=== PATIENT | male | born 1970 | race Caucasian/White ===

== ENCOUNTER 2018-04-01 13:22 | Emergency (ER) | payer OTHER ==
[~2018-04-01] VITALS: Ht 177.8 cm; Wt 124.7 kg
[~2018-04-01 13:22] MED LIST: AMBIEN 5 MG TABL5 M1 PO; CEPHALEXIN 500500 M2 PO; CIPROFLOXACIN500 M1 PO; CLEOCIN HCL150 MG PO; FLOXIN OTI0.3 %/5 M1 OP; NEXIUM40 MG PO; NORCO 5-325 TA1 EACH PO; PRILOSEC 20 MG20 MG PO; VICODIN
[2018-04-01] MEDS ORDERED: ZANTAC 150MG T150 MG PO (13:35)
[2018-04-01 13:45] LABS: ABSOLUTE EOSINOPHILS 0.1 thou/uL (0.0-0.7); ABSOLUTE LYMPHOCYTES 1.5 thou/uL (0.8-5.3); ABSOLUTE MONOCYTES 0.4 thou/uL (0.0-1.2); ABSOLUTE NEUTROPHILS 2.6 thou/uL (1.6-8.1); BASOPHILS 0.6 %; EOSINOPHILS 1.8 %; HEMATOCRIT 39.4 % (42.0-52.0); HEMOGLOBIN 13.4 gm/dL (14.0-18.0); LYMPHOCYTES 32.5 %; MCH 27.5 pg (26.0-34.0); MCHC 34.1 g/dL (28.0-37.0); MCV 80.8 fL (80.0-100.0); MONOCYTES 8.7 %; MPV 8.8 fl. (7.2-11.1); NUCLEATED RBCS 0 /100WBC; PLATELET COUNT* 160 thou/uL (150-400); POLYS 56.4 %; RBC 4.88 mil/uL (4.50-6.00); RDW-CV 13.5 % (10.5-14.5); WBC 4.6 thou/uL (4.0-11.0)
[2018-04-01 13:57] LABS: ANION GAP 6 mmol/L (7-16); BUN 19 mg/dL (7-18); CALCIUM 9.2 mg/dL (8.5-10.1); CHLORIDE 105 mmol/L (98-107); CO2 27 mmol/L (21-32); CREATININE 1.1 mg/dL (0.6-1.3); GLUCOSE 103 mg/dL (70-99); POTASSIUM 3.9 mmol/L (3.5-5.1); SODIUM 138 mmol/L (136-145)
[2018-04-01 14:04] LABS: ALBUMIN 4.1 g/dL (3.4-5.0); ALKALINE PHOSPHATASE 63 U/L (46-116); SGOT 18 U/L (15-37); SGPT 28 U/L (30-65); TOTAL BILIRUBIN 0.4 mg/dL (<0.1-1.0); TOTAL PROTEIN 7.4 g/dL (6.4-8.2); TROPONIN-I LEVEL <0.06 ng/mL (<0.06)
[2018-04-01 15:36] VITALS: BP 125/79
--- NOTE | 2018-04-02 13:25 | EKG ---
[place] [address] ELECTROCARDIOGRAM REPORT Name: LESLIE SHETH Room: [facility]#: [id number] Admission: 04/01/18 Attend Phys: Discharge: 04/01/18 Date of : 68 Report #: [id number] THIS REPORT FOR: //name// [facility] ED Test Date: 2018-04-01 Test Time: 13:29:45 Pat Name: LESLIE SHETH Department: Room: Gender: M [employer]: Finn : 1970 Requested By: Carri Little Order Number: [id number] MD: Young Carbajal Measurements Intervals [place] Rate: 74 P: 64 NE: 178 QRS: 3 QRSD: 102 T: 23 QT: 388 QTc: 431 Interpretive Statements Sinus rhythm Probable left atrial enlargement Low voltage, precordial leads Compared to ECG 06/03/2007 00:18:02 Low QRS voltage now present Sinus bradycardia no longer present Electronically Signed On 04-02-2018 13:25:36 CDT by Young Carbajal [email or web address] <ELECTRONICALLY SIGNED> By: Young Carbajal MD, [facility] 04/02/18 1329 [id number] [id number] Young Carbajal MD, [facility] /EPI
== END 2018-04-01 15:37 | disposition home or self-care (01) ==
LOC: M.ERS 13:22
PROVIDERS: Personal Emergency Response Attendant
DX: R00.2 Palpitations (principal); K21.9 Gastro-esophageal reflux disease without esophagitis; Z90.49 Acquired absence of other specified parts of digestive tract; Z88.8 Allergy status to other drugs, medicaments and biological substances; Z88.0 Allergy status to penicillin

== ENCOUNTER 2020-02-28 08:54 | Emergency (ER) | payer OTHER ==
[~2020-02-28] VITALS: Ht 180.3 cm; Wt 124.7 kg
[~2020-02-28 08:54] MED LIST changes: +ZANTAC 150MG T150 MG PO
[2020-02-28 09:00] VITALS: BP 137/92
== END 2020-02-28 09:36 | disposition home or self-care (01) ==
LOC: M.ERS 08:54
DX: S80.12XA Contusion of left lower leg, initial encounter (principal); K21.9 Gastro-esophageal reflux disease without esophagitis; Z90.49 Acquired absence of other specified parts of digestive tract; Z88.0 Allergy status to penicillin; Z88.8 Allergy status to other drugs, medicaments and biological substances; X58.XXXA Exposure to other specified factors, initial encounter; Y93.89 Activity, other specified; Y92.89 Other specified places as the place of occurrence of the external cause; Y99.8 Other external cause status